=== PATIENT | male | born 1940 | race Caucasian/White ===

== ENCOUNTER 2019-04-14 10:06 | Inpatient (IN) | payer MEDICARE, OTHER ==
[~2019-04-14] VITALS: Ht 193 cm; Wt 87.8 kg
[2019-04-14 10:07] VITALS: BP 103/66
[2019-04-14 10:45] LABS: ABSOLUTE BASOPHILS 0.1 thou/uL (0.0-0.2); ABSOLUTE EOSINOPHILS 0.2 thou/uL (0.0-0.7); ABSOLUTE LYMPHOCYTES 0.7 thou/uL (0.8-5.3); ABSOLUTE MONOCYTES 0.6 thou/uL (0.0-1.2); ABSOLUTE NEUTROPHILS 6.1 thou/uL (1.6-8.1); BASOPHILS 1.3 %; EOSINOPHILS 3.2 %; HEMATOCRIT 36.3 % (42.0-52.0); HEMOGLOBIN 12.6 gm/dL (14.0-18.0); LYMPHOCYTES 8.5 %; MCH 35.4 pg (26.0-34.0); MCHC 34.6 g/dL (28.0-37.0); MCV 102.4 fL (80.0-100.0); MPV 7.1 fl. (7.2-11.1); NUCLEATED RBCS 0 /100WBC; PLATELET COUNT* 170 thou/uL (150-400); RBC 3.54 mil/uL (4.50-6.00); RDW-CV 14.4 % (10.5-14.5); WBC 7.7 thou/uL (4.0-11.0)
[2019-04-14 10:54] LABS: CALCIUM 8.2 mg/dL (8.5-10.1); CREATININE 1.8 mg/dL (0.6-1.3); POTASSIUM 4.1 mmol/L (3.5-5.1)
[2019-04-14 10:55] LABS: APTT 24.9 Seconds (25.0-31.3); INR 1.1; PROTIME 11.2 Seconds (9.20-11.50)
[2019-04-14 10:58] LABS: ALBUMIN 3.4 g/dL (3.4-5.0); TOTAL BILIRUBIN 0.7 mg/dL (<0.1-1.0); TOTAL PROTEIN 7.5 g/dL (6.4-8.2)
[2019-04-14] MEDS ORDERED: ALLOPURINOL 10100 M3 PO ×2 (11:49→12:13)
[2019-04-14] MEDS ORDERED: SINEMET 25-1001 EAC1 PO (11:50)
[2019-04-14] MEDS ORDERED: LIPITOR 20 MG T20 M1 PO (11:50)
[2019-04-14] MEDS ORDERED: NORVASC 2.5 MG2.5 M1 PO (11:50)
[2019-04-14] MEDS ORDERED: AGGRENOX 25 MG1 EACH PO (11:51)
[2019-04-14] MEDS ORDERED: TOPROL XL50 MG PO (11:51)
[2019-04-14] MEDS ORDERED: OMEPRAZOLE 20 M20 M1 PO (12:15)
[2019-04-14] MEDS ORDERED: TAMSULOSIN HCL0.4 MG PO (12:15)
[2019-04-14] MEDS ORDERED: AMBIEN5 MG PO (12:16)
[2019-04-14] MEDS ORDERED: SILDENAFIL20 MG PO (12:17)
[2019-04-14] MEDS ORDERED: REMERON15 M2 PO (12:17)
[2019-04-14 15:00] VITALS: BP 115/68
[2019-04-14 15:15] VITALS: BP 127/75
[2019-04-14 15:19] VITALS: BP 119/69
[2019-04-14 15:22] VITALS: BP 114/68
--- NOTE | 2019-04-14 18:44 | NUR ---
PT ARRIVED TO ROOM 233 AT APPROX 1510 FROM ER. PT A/O X2, FORGETFUL, HAS DEMENTIA, VERY WEAK WITH PARKINSONS TREMORS AND TICKS ON THE LEFT SIDE MOSTLY. PTS SISTER AT BEDSIDE, STATES THIS IS HIS BASELINE, ALSO THAT SHE "THINKS HE HAS HAD A STROKE IN THE PAST AND HAS LEFT SIDE FACIAL DROOP". NIH DONE CHARTED. NEUROLOGY CONSULT PLACED. PT VERY WEAK, UP WITH 2 ASSIST/WALKER. FALL PRECAUTIONS IN PLACE. ADMISSION DONE CHARTED. VSS, SR ON THE MONITOR.
[2019-04-14 19:25] VITALS: BP 136/86
[2019-04-14 23:10] LABS: URINE BILIRUBIN NEGATIVE (Negative); URINE BLOOD NEGATIVE (Negative); URINE CLARITY CLEAR; URINE COLOR YELLOW; URINE GLUCOSE-RANDOM NEGATIVE (Negative); URINE KETONES NEGATIVE (Negative); URINE LEUKOCYTES-REFLEX NEGATIVE (Negative); URINE NITRITE-REFLEX NEGATIVE (Negative); URINE PROTEIN NEGATIVE (Negative); URINE UROBILINOGEN 0.2 E.U./dl (0.2-1.0)
[2019-04-15] VITALS (7 sets, daily range): BP systolic 115–148; BP diastolic 68–88
--- NOTE | 2019-04-15 04:22 | NUR ---
ASSUMED CARE OF PT AT 1900. PT IS VERY CONFUSED AND TRYING TO GET OUT OF BED AT TIMES. PT IS VERY IMPULSIVE. PT IS ALSO INCONTINANT. VSS. NO COMPLAINTS OF PAIN. PT IS IN SINUS RYTHM ON THE TELEMETRY. PT IS RESTING COMFORTABLY IN BED. RESPIRATIONS ARE EVEN AND NONLABORED. WILL CONTINUE TO MONITOR PT.
--- NOTE | 2019-04-15 19:06 | NUR ---
ASSUMED PT CARE REPORT RECEIVED FROM NURSE PT IS ALERT AWAKE, CONFUSED, ON RA. VSS. ORTHOSTATIC VITAL SIGNS. UP WITH ASSIST X2. PT TEMP WAS SLIGHTLY ELEVATED DURING MID;E OF DAY. TEMP WAS AT 99.1, THEN TEMP DROPPED AT 98.3 IN AFTERNOON. PT BECAME AGITATED IN THE MIDDLE OF SHIFT THEN CALMED DOWN AND NOW RESTING IN BED. FALL PRECAUTION IN PLACE. BED ALARM ON. CALL LIGHT AT REACH. WILL CONTINUE TO MONITOR PT
[2019-04-16] VITALS: BP 122/75
[2019-04-16 04:00] VITALS: BP 147/80
--- NOTE | 2019-04-16 05:49 | NUR ---
VSS. ASSESSMENT COMPLETED CHARTED. SEE MAR. FALL PRECAUTIONS IN PLACE. HOURLY ROUNDING FOR SAFETY.
[2019-04-16 08:00] VITALS: BP 150/92
--- NOTE | 2019-04-16 12:18 | EKG ---
[place] [address] ELECTROCARDIOGRAM REPORT Name: VANCE WILKES Room: [place] [address] ADM IN M.R.#: [id number] Admission: 04/14/19 Attend Phys: Sheron Calle Discharge: Date of : 44 Report #: [id number] THIS REPORT FOR: //name// [facility] ED Test Date: 2019-04-14 Test Time: 10:45:10 Pat Name: VANCE WILKES Department: Room: [facility] Gender: M International Coordinator: : 1940 Requested By: Levon Crowe Order Number: [id number] MD: Matthew Gallo Measurements Intervals [place] Rate: 84 P: 36 MN: 178 QRS: -27 QRSD: 89 T: 19 QT: 350 QTc: 414 Interpretive Statements Sinus rhythm Inferior infarct, old No previous ECG available for comparison Electronically Signed On 04-16-2019 12:17:55 ELECTRIC POWER LINE EXAMINER by Matthew Gallo [email or web address] <ELECTRONICALLY SIGNED> By: Matthew Gallo MD, [facility] 04/16/19 1217 1045 1045 Matthew Gallo MD, FACC /EPI
[2019-04-16 12:37] VITALS: BP 130/82
--- NOTE | 2019-04-16 14:21 | NUR ---
MET WITH PT AND /LUKASZ TO DISCUSS HOME SITUATION/DC PLANNING. PT'S ANSWERED QUESTIONS, PT WITH SOME CONFUSION. HAS HAD SITTER. PT AND LIVE IN [place], [place], WERE HERE FOR THE HOLIDAYS VISITING PT'S SISTER JANE WHO IS A RETIRED NURSE. AT HOME, PT HAS BEEN ABLE TO AMBULATE WITHOUT DEVICE, ASSISTS WITH BATHING AND DRESSING NEEDED. STATES PT WAS RECENTLY DX WITH PARKINSONS AND NOW WITH INCREASED CONFUSION ( STATES IS NEW). THEY HAVE EQUIPMENT AT HOME- W/C, WALKER, CANE AND SHOWER BENCH. PT HAS HAD HH IN PAST. THEY ARE STAYING IN [place] WITH PT'S SISTER JANE DE LEON HER ADDRESS IS [address] [facility] WILL FOLLOW
[2019-04-16 16:00] VITALS: BP 109/77
--- NOTE | 2019-04-16 18:54 | NUR ---
ASSUMED PT CARE AT 0730. ASSESSMENT COMPLETED CHARTED. UNABLE TO MAKE NEEDS KNOWN, IMPULSIVE AT TIMES, UNABLE TO STAND R/T COORDINATION, CONFUSED. PT AND/OR SISTER IN ROOM, SITTER AT BEDSIDE OTHERWISE DUE TO IMPULSIVE NATURE. NO C/O PAIN OR DISCOMFORT. RESTING IN BED AT THIS TIME. IV FLUIDS RUNNING PER EMAR. WILL CONTINUE TO MONITOR.
[2019-04-16 19:50] VITALS: BP 118/73
[2019-04-17 00:38] VITALS: BP 149/74
[2019-04-17 04:00] VITALS: BP 144/86
--- NOTE | 2019-04-17 05:00 | NUR ---
ASSESSMENT COMPLETED CHARTED. SEE fall PRECATUIONS IN PLACE. HOURLY ROUNDING FOR SAFETY. VSS.
[2019-04-17 08:00] VITALS: BP 135/87
[2019-04-17 13:16] VITALS: BP 135/84
--- NOTE | 2019-04-17 14:16 | NUR ---
CONTINUE TO FOLLOW, REHAB IS CONSIDERING PT BUT NEEDED CLARIFICATION ON POSSIBLE N/S ISSUE. PER NURSE, NEURO STATED NO NEED FOR N/S EVAL. CALL TO [facility] TO UPDATE THAT PT READY FOR DC AND CHECK REHAB ACCEPTANCE STATUS
[2019-04-17 19:30] VITALS: BP 132/85
[2019-04-18] VITALS: BP 140/85
--- NOTE | 2019-04-18 05:10 | NUR ---
ASSESSMENT COMPLETED CHARTED. VSS. SEE MAR. PROGRESSING TOWARDS GOALS. FALL PRECAUTIONS IN PLACE. HOURLY ROUNDING FOR SAFETY.
[2019-04-18 08:00] VITALS: BP 131/80
[2019-04-18 09:02] LABS: HEMATOCRIT 37.4 % (42.0-52.0); MCHC 34.9 g/dL (28.0-37.0); MCV 100.2 fL (80.0-100.0); MPV 6.9 fl. (7.2-11.1); RBC 3.73 mil/uL (4.50-6.00); RDW-CV 14.2 % (10.5-14.5); WBC 5.2 thou/uL (4.0-11.0)
[2019-04-18 09:16] LABS: ALBUMIN 3.2 g/dL (3.4-5.0); CALCIUM 8.4 mg/dL (8.5-10.1); CREATININE 1.3 mg/dL (0.6-1.3); MAGNESIUM 1.8 mg/dL (1.8-2.4); POTASSIUM 3.7 mmol/L (3.5-5.1); TOTAL BILIRUBIN 0.7 mg/dL (<0.1-1.0); TOTAL PROTEIN 7.3 g/dL (6.4-8.2)
[2019-04-18 20:00] VITALS: BP 134/86
[2019-04-19 00:13] VITALS: BP 151/85
--- NOTE | 2019-04-19 06:15 | NUR ---
ASSUMED CARE OF PT AFTER REPORT AT 1930. PT A&OX1. CONFUSED, FORGETFUL, IMPULSIVE & COMBATIVE. VSS. PHYSICAL ASSESSMENT COMPLETED AND CHARTED. PT ON RA. PT ON MEDSURG STATUS. PT TRIED TO GET OUT OF BED & PULLING IV OUT- DR DURBIN MADE AWARE WITH NEW ORDER. PT STAYED AWAKE ALL NIGHT. FALL PRECAUTIONS IN PLACE. CALL LIGHT WITHIN REACH.
[2019-04-19 08:00] VITALS: BP 135/89; BP 175/91
[2019-04-19 15:27] VITALS: BP 145/96
[2019-04-19 17:27] VITALS: BP 123/69
--- NOTE | 2019-04-19 19:00 | NUR ---
ASSUMED PT CARE AT 0730. ASSESSMENT COMPLETED CHARTED. NO C/O PAIN OR DISCOMFORT. IMPULSIVE AND CONFUSED, PLEASENT TO STAFF TODAY. FELL ASLEEP A COUPLE TIMES TODAY FOR A FEW MINS THEN UP AGAIN. RESTING IN BED AT THIS TIME. USING URINAL AT TIMES BUT OTHERWISE INCONTINENT. FAMILY AT BEDSIDE TILL AROUND 6PM. WILL CONTINUE TO MONITOR.
[2019-04-19 20:00] VITALS: BP 134/74
[2019-04-20 04:00] VITALS: BP 155/88; BP 179/94
--- NOTE | 2019-04-20 04:19 | NUR ---
ASSUMED CARE OF PT AFTER REPORT AT 1930. PT A&OX1, CONFUSED & FORGETFUL. VSS. PHYSICAL ASSESSMENT COMPLETED AND CHARTED. PT ON RA. PT ON MEDSURG STATUS. PT DENIES ANY PAIN OR DISCOMFORT. PT MORE CALM TONIGHT. PT ABLE TO SLEEP WELL ON BED. CALL LIGHT WITHIN REACH.
[2019-04-20 08:00] VITALS: BP 115/83; BP 128/81; BP 145/88
[2019-04-20 12:00] VITALS: BP 110/68
--- NOTE | 2019-04-20 12:33 | NUR ---
CALL FROM RICKEY BOND/RADHA, FROM [place], [place] REHAB FACILITY, RYCNAS-[phone] TO INQUIRE ON STATUS OF PT. UPDATED HER. SHE SAID SHE WAS GOING TO AND THEN WOULD BE AT [facility] ABOUT 1400 TO VISIT PT. LEONID GUERRERO. INFORMED AT THIS TIME.
--- NOTE | 2019-04-20 15:14 | NUR ---
Spoke with [facility] from [facility], she is to meet with Pt and family around 3pm. Per Melina, if they can accept, they will not have a bed available until tomorrow. Updated family and nurse.
[2019-04-20 20:00] VITALS: BP 131/71
[2019-04-20 23:59] VITALS: BP 131/74
--- NOTE | 2019-04-21 05:05 | NUR ---
ASSUMED PT CARE AT 1915. PT IMPULSIVE AND FORGETFUL. HIGH FALL PRECAUTIONS IN PLACE. PT DENIES PAIN. VOICES NO CONCERNS THIS SHIFT. HOURLY ROUNDING COMPLETED. PT TURNS SELF. CALL LIGHT WITHIN REACH.
[2019-04-21 08:00] VITALS: BP 149/79
[2019-04-21 10:49] VITALS: BP 149/79
--- NOTE | 2019-04-21 10:58 | NUR ---
ORDERS RECEIVED FOR PT TO TRANSFER TO [facility]. SPOKE TO DEBBIE AT [facility]. ORDER AND DC SUMMARY FAXED. TRANSFER SHEET FAXED TO EMS. WILL AWAIT TRANSPORT. NURSE TO CALL REPORT TO . PT AND NOTIFIED
[2019-04-21] MEDS ORDERED: TYLENOL EXTRA500 MG PO (11:09)
--- NOTE | 2019-04-21 12:13 | NUR ---
RECEIVED REPORT FROM DMITRY ABAD. ASSUMED CARE OF PT AROUND 0730. PT SLEEPING UPON AM ASSESSMENT, AWAKENED EASILY TO CALLING HIS NAME BUT REMAINED DROWSY. ORIENTED TO SELF ONLY. VSS. AM ASSESSMENT AND VITALS COMPLETED CHARTED. M/S STATUS. MEDS PER EMAR. O.T. IN TO WORK WITH PT. PT HAVING VISIBLE INTERMITTENT TREMORS - PT FAMILY FAMILY REPORTS THIS TO BE INCREASED SINCE DOSE OF SINEMET DECREASED. DISCHARGE TO REHAB FACILITY PLANNED. DISCHAGE COMPLETED DOCUMENTED. COPY OF DC PLACED IN PACKET FOR TRANSPORTER. PT TO TRAVEL BY AMBULACNE WITH [facility]. DAUGHTER AT BEDSIDE CURRENTLY. PT SITTING UP IN BED WATCHING TV. DENEIS PAIN. CALL LIGHT IS WITHIN REACH. HOURLY ROUNDING PERFORMED. FALL PRECAUTIONS IN PLACE. WCTM TILL [facility] ARRIVES FOR PT.
[2019-04-21 12:25] VITALS: BP 118/68
[2019-04-21 14:14] VITALS: BP 100/66
--- NOTE | 2019-04-21 14:35 | NUR ---
[facility] ARRIVED TO TRANSPORT PT AROUND 1415. DC VITALS AND NIH CHARTED. PT HAD BM PRIOR TO LEAVING UNIT. TO FOLLOW AMBULANCE IN HER CAR. SISTER AT BESIDE TO SEE PT OFF. PT DENIED PAIN OR DISCOMFORT AT TIME OF DC. ALL BELONGINGS GATHERED AND SENT WITH . PT ABLE TO EAT LUNCH PRIOR TO DISCHARGING. PT LEFT UNIT IN AMBULANCE CART WITH EMS STAFF AROUND 1420. REPORT CALLED TO [facility], BUT AFTER WAITING ON HOLD FOR SEVERAL MINUTES KRISTEN ASKED THIS RN TO CALL BACK IN TEN MINUTES TO GIVE REPORT. WILL TRY AGAIN TO GIVE REPORT.
--- NOTE | 2019-04-21 15:50 | NUR ---
THIS RN HAS CALLED TWICE MORE TO GIVE REPORT TO [facility] TO GIVE REPORT ON THE PT. THIS LAST CALL, SPOKE TO NATHALIA, WHO TOLD THIS RN TO CALL BACK IN 5 MINUTES. SINCE MULTIPLE ATTEMPTS HAVE BEEN MADE TO GIVE REPORT, THIS RN ASKED [facility] TO PLEASE CALL WHEN READY TO RECEIVE REPORT.
--- NOTE | 2019-04-21 15:58 | NUR ---
NATHALIA FROM [facility] CALLED BACK AND REPORT WAS GIVEN TO HER REGARDING THE PT.
--- NOTE | 2019-04-27 11:51 | EEG ---
[facility] [address] [place] [address] EEG STUDY REPORT Name: VANCE WILKES Room: [address] IN M.R.#: [id number] Admission: 04/14/19 Attend Phys: Sheron Calle Discharge: 04/21/19 Date of : 44 Report #: [id number] THIS REPORT FOR: //name// CC: LEROY Au Physician staff DATE OF SERVICE: 04/15/2019 This patient is being evaluated for an episode of syncope. EEG was done by placing the electrode by standard 10-20 system of electrode placement. Both referential and sequential montages were used for recording. Background activity in this patient's EEG is about 6-7 Hz and 30 microvolts. This patient went to sleep and that is associated with bilateral slowing and vertex sharp waves. Photic stimulation is unremarkable. Throughout the record, no active epileptiform activity was noticed. IMPRESSION AND PLAN: This is an abnormal EEG because it is slow and disorganized. That is a nonspecific finding which can occur with dementia, encephalopathy, effect of psychotropic medications, etc. No active epileptiform activity was noticed in this record, but it might be mentioned that EEG can be normal in a patient with a seizure disorder. Thank you very much for this referral. <ELECTRONICALLY SIGNED> By: Sven Schuster MD 04/27/19 1151 1700 1829Sven Schuster MD /francisco
--- NOTE | 2019-04-27 11:51 | CON ---
[facility] [address] [place] [address] CONSULTATION Name: VANCE WILKES Room: [address] IN M.R.#: [id number] Admission: 04/14/19 Attend Phys: Sheron Calle Discharge: 04/21/19 Date of : 44 Report #: [id number] THIS REPORT FOR: //name// CC: LEROY Au Physician staff DATE OF SERVICE: 04/14/2019 HISTORY OF PRESENT ILLNESS: A 79-year-old male patient who was evaluated by me for any neurological etiology for the patient's episode of passing out. The patient does not remember anything about this episode. In fact, this patient has advanced dementia and he has virtually no memory. The family gives a history which has been summarized in the Emergency Room and admission notes. He basically slumped over. He did have jerking movements. It lasted about 10-15 minutes. The jerking did not last that long. It came spontaneously without any trauma. He had no expression for some time. There was no injury because he did not fall down. 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 He has been diagnosed with Lewy body dementia. He does have a history of carotid disease and hyperglycemia. Rest of the history is difficult to obtain in this patient because of advanced dementia, but does not look like he is complaining of any new eye, ENT, cardiac, respiratory, GI, or symptom. He has a pretty significant pain. Because of his dementia, I am not able to localize his pain. He says it is in both hips, but he says it starts from the legs. In general, he has marked difficulty with ambulation, but now he does not move his legs when he is lying down, he said it is because of pain. He does not have any constitutional, dermatological, hematological, psychiatric, throat, allergic symptom, which is new. PAST MEDICAL HISTORY: Positive for a diagnosis of Lewy body dementia. FAMILY HISTORY: Unremarkable. SOCIAL HISTORY: The patient lives with his . PHYSICAL EXAMINATION: NEUROLOGICAL: The patient's examinations indicate he is alert. He does not know what month and what date it is. He does not know what year it is. He does not know which hospital he is in or who the president is. His speech looks intact. Cranial nerve examination 2-12, the best I can tell, looks unremarkable, but he is not able to count the finger very properly on the left eye. He moves both upper extremities well. The lower extremity he did not move except slight movement. I do not know how long it is going on, but he says it is because of pain. When I do the position sense, initially, he did not do it, [address] [place] [address] CONSULTATION Name: VANCE WILKES Room: [address] IN .R.#: [id number] Admission: 04/14/19 Attend Phys: Sheron Calle Discharge: 04/21/19 Date of : 44 Report #: [id number] but subsequently did the position sense. His reflexes are present in the lower extremities and plantar appear to be upgoing, but that is difficult to tell because he has neurodegenerative disorder. I cannot tell about the pulses, but he does not have any obvious vascular insufficiency. Pulses are difficult to tell in the lower extremities. He has no edema, cyanosis, or jaundice. GENERAL: He is a very well-developed individual. HEENT: His hearing and vision are adequate. NECK: He has no thyroid mass or carotid bruit. VITAL SIGNS: Blood pressure is 115/68, pulse is 87, and temperature is 97.6. LABORATORY DATA: Indicated normal white count. MCV is somewhat high. GFR is low at 37. IMPRESSION: This patient needs further workup to determine the etiology of his spell. Neurologically, the main differential is between a transient ischemic attack and seizure, but he needs to work up to evaluate for other causes including cardiac causes. The pain and inability to move his legs is worrisome. Although further evaluation I will defer to you, but I will suggest doing a pelvic film and a CT of the lower spine, which I ordered. I will also order a CT of the head. He will probably need an MRI, and if that can be done, I will prefer an MRI in this patient, especially because he cannot move his legs. Thank you very much for this referral. <ELECTRONICALLY SIGNED> By: Sven Schuster MD 04/27/19 1151 1856 0357Sven Schuster MD /nt
== END 2019-04-21 14:20 | DRG 682 ==
LOC: M.ERS 10:06 → M.TBA-ER 11:22 → M.2W 11:22
PROVIDERS: Emergency Medicine Emergency Medical Services; ADMIT Internal Medicine
DX: N17.9 Acute kidney failure, unspecified (principal); G93.41 Metabolic encephalopathy; R44.3 Hallucinations, unspecified; I95.1 Orthostatic hypotension; G20 Parkinson's disease; E11.22 Type 2 diabetes mellitus with diabetic chronic kidney disease; R41.82 Altered mental status, unspecified; G30.9 Alzheimer's disease, unspecified; N18.3 Chronic kidney disease, stage 3 (moderate); F02.80 Dementia in other diseases classified elsewhere, unspecified severity, without behavioral disturbance, psychotic disturbance, mood disturbance, and anxiety; E11.65 Type 2 diabetes mellitus with hyperglycemia; Z79.82 Long term (current) use of aspirin; Z79.899 Other long term (current) drug therapy; Z95.828 Presence of other vascular implants and grafts; Z23 Encounter for immunization